=== PATIENT | female | born 1995 | race Hispanic/Latino ===

== ENCOUNTER 2017-10-12 10:16 | Emergency (ER) | payer BC ==
[~2017-10-12] VITALS: Ht 165.1 cm; Wt 88.5 kg
[~2017-10-12 10:16] MED LIST: PROGESTERONE100 MG
[2017-10-12] MEDS ORDERED: SODIUM CHLORIDE 0.9% 1000ML 1,000 ML IV STA (10:28)
[2017-10-12] MEDS ORDERED: ONDANSETRON HCL INJ 2 MG/ML VIAL IV STA (10:28)
[2017-10-12] MEDS ORDERED: MORPHINE SULFATE 4 MG/ML SYR IV STA (10:28)
[2017-10-12] MEDS ORDERED: MORPHINE SULFATE 2 MG/ML SYR ONE (10:51)
[2017-10-12 11:04] LABS: BASOPHILS % 0.3 % (0.0-1.0); EOSINOPHILS # (AUTO) 0.2 (0.0-0.4); EOSINOPHILS % 2.1 % (0.0-6.0); HEMATOCRIT 44.7 % (34.2-44.1); HEMOGLOBIN 15.5 g/dL (12.0-16.0); LYMPHOCYTES # (AUTO) 3.5 (1.0-3.2); LYMPHOCYTES % 38.8 % (18.0-39.1); MEAN CORPUSCULAR HGB CONC 34.7 g/dL (31-35); MEAN CORPUSCULAR VOLUME 89.4 fL (81-99); MONOCYTES # (AUTO) 1.1 (0.2-0.8); MONOCYTES % 12.2 % (4.4-11.3); NEUTROPHILS # (AUTO) 4.1 (2.1-6.9); NEUTROPHILS % 46.2 % (38.7-80.0); PLATELET COUNT 259 x10e3/uL (140-360); RED CELL DISTRIBUTION WIDTH 12.4 % (11.7-14.4)
[2017-10-12 11:12] LABS: PREGNANCY TEST, URINE NEGATIVE (NEGATIVE)
[2017-10-12 11:14] LABS: BILIRUBIN,URINE NEGATIVE (NEGATIVE); CLARITY,URINE CLOUDY (CLEAR); COLOR,URINE YELLOW (YELLOW); KETONES,URINE NEGATIVE (NEGATIVE); LEUKOCYTE ESTERASE ,URINE NEGATIVE (NEGATIVE); NITRITE,URINE NEGATIVE (NEGATIVE); PROTEIN,URINE DIPSTICK 1+ (NEGATIVE); URINE UROBILINOGEN 0.2 mg/dL (0.2 - 1)
[2017-10-12 11:22] LABS: ALANINE AMINOTRANSFERASE 131 IU/L (0-55); ALBUMIN 3.8 g/dL (3.5-5.0); ALBUMIN/GLOBULIN RATIO 0.9 (0.8-2.0); ALKALINE PHOSPHATASE 83 IU/L (40-150); ANION GAP 14.8 mmol/L (8-16); BLOOD UREA NITROGEN 12 mg/dL (7-26); BUN/CREATININE RATIO 14 (6-25); CALCIUM 8.9 mg/dL (8.4-10.2); CARBON DIOXIDE 20 mmol/L (22-29); CHLORIDE 107 mmol/L (98-107); CREATININE, SERUM 0.86 mg/dL (0.57-1.11); EST GLOMERULAR FILTRATION RATE > 60 ML/MIN (60-); GLUCOSE 120 mg/dL (74-118); LIPASE 16 U/L (8-78); POTASSIUM 3.8 mmol/L (3.5-5.1); SODIUM 138 mmol/L (136-145)
[2017-10-12 11:37] LABS: BACTERIA,URINE RARE /HPF; EPITHELIAL CELLS,URINE FEW /LPF; RBC,URINE 0-5 /HPF (0-5)
--- NOTE | 2017-10-12 11:53 | Diagnostic Imaging Report ---
PROCEDURE:US GALLBLADDER COMPARISON:None. INDICATIONS:Abdomen Pain TECHNIQUE: Mello-scale and color doppler transverse and longitudinal images of the right upper quadrant of the abdomen were obtained. FINDINGS: Liver: 15.4 cm in right mid-clavicular line. <<Increased parenchymal?>> echogenicity. No masses. Main portal vein: 1.3 cm in caliber. Hepatopedal flow. Gallbladder: Unremarkable in sonographic appearance without shadowing calculus, wall thickening, or pericholecystic fluid. Common Bile Duct: 0.6 cm Sonographic Hutchinson's sign: Reported as negative. Right kidney: 11.3 cm in length. Normal renal cortical echogenicity. No solid masses or hydronephrosis. Pancreas: The visualized portions are unremarkable. Inferior vena cava: Patent Aorta: Non-aneurysmal Ascites: None in the right upper quadrant of the abdomen. CONCLUSION: No cholelithiasis or sonographic evidence of acute cholecystitis. Increased hepatic parenchymal echogenicity compatible with steatosis. Dictated by: Rodrigue Fields M.D. on 10/12/2017 at 11:52 Electronically approved by: Rodrigue Fields M.D. on 10/12/2017 at 11:52
[2017-10-12 12:10] VITALS: BP 98/50
== END 2017-10-12 12:17 | disposition home or self-care (01) ==
LOC: ER 10:16
DX: R10.11 Right upper quadrant pain (principal); R10.13 Epigastric pain; R11.0 Nausea; R19.7 Diarrhea, unspecified
CPT/HCPCS: 36415; 76705; 80053; 81001; 81025; 83690; 85025; 99284; J2270; J2405; J7030

== ENCOUNTER 2018-04-16 01:59 | Emergency (ER) | payer BC ==
[~2018-04-16] VITALS: Ht 165.1 cm; Wt 93.4 kg
[2018-04-16] MEDS ORDERED: ALBUTEROL/IPRATROPIUM 3 ML NEB NEB ONE (02:30)
[2018-04-16] MEDS ORDERED: IBUPROFEN 600 MG TAB PO STA (03:00)
[2018-04-16 03:17] VITALS: BP 133/61
== END 2018-04-16 03:15 | disposition home or self-care (01) ==
LOC: FSED 01:59
DX: R05 Cough (principal); J20.9 Acute bronchitis, unspecified
CPT/HCPCS: 83518; 99283